=== PATIENT | female | born 1960 | race Caucasian/White ===

== ENCOUNTER 2020-10-29 07:33 | Emergency (ER) | payer OTHER ==
--- NOTE | 2020-10-29 08:33 | EDM.PDOC ---
ED HPI GENERAL MEDICAL PROBLEM - General Chief Complaint: Respiratory Problem Stated Complaint: difficult time breathing Time Seen by Provider: 10/29/20 08:00 Source of Information: Reports: Patient, Family, RN History Limitations: Reports: No Limitations - History of Present Illness INITIAL COMMENTS - FREE TEXT/NARRATIVE: 60-year-old female presents today because she has increasing difficulty breathing. She says she started with a sinus infection with a cold symptoms in August early. That largely resolved but it appears that by Thanksgi she was having significant cough and possibly raising green phlegm. This has continued without the phlegm production because she cannot cough that hard anymore. She is noticed increasing shortness of breath in the last 2 months as well and cannot sleep laying down and apparently has not slept in recent nights because of difficulty breathing. She denies any real pain. She notes that she gets diarrhea since he eats something and she does not eat very often anymore. She did note a 20 pound weight gain represented by edema in her legs. Her urine is dark and her stools are brown She does note that her abdomen seems to be getting bigger as well when I asked her. When I asked about the obvious scleral icterus and yellow skin, they report that they live in a dark house and he is color blind Notably she had lung cancer in 2015 with a wedge resection. In [address] of the chest noted here. She reports in December 2019 that her oncologist had done lab work which was okay at that time but that would be almost a year ago. Her Covid risk is small as she has not been out of the house for over a year. - Related Data Allergies Allergy/AdvReac Type Severity Reaction Status Date / Time Sulfa (Sulfonamide Allergy Rash Verified 10/29/20 07:50 Antibiotics) Home Meds: Home Meds HCTZ/Triamterene [Maxzide 25-37.5 MG] 1 tab PO DAILY 12/14/13 [History] Albuterol [Proventil HFA] 2 puff INH Q4H PRN #1 inhaler 12/17/13 [Rx] Metoprolol Succinate [Toprol XL] 25 mg PO DAILY 08/25/15 [History] Azithromycin 250 mg PO DAILY 10/29/20 [History] Fluticasone Propion/Salmeterol [Advair 250-50 Diskus] 1 puff INH BID 10/29/20 [History] Nystatin [Mycostatin] 5 ml PO QID 10/29/20 [History] predniSONE [Prednisone] 5 mg PO ASDIRECTED 10/29/20 [History] Past Medical History Other HEENT History: wears glasses, 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 GI Surgical History: Reports: Cholecystectomy Other GI Surgeries/Procedures: hemorrhoidectomy Female Surgical History: Reports: Breast Biopsy, Breast Implant, Tubal Ligation Other Musculoskeletal Surgeries/Procedures:: C5-6 fusion, C4-5 fusion, rotator cuff tear without repair Oncologic Surgical History: Reports: Biopsy of Breast Social & Family History - Tobacco Use Tobacco Use Status *Q: Former Tobacco User Used Tobacco, but Quit: Yes Month/Year Tobacco Last Used: 10/2020 - Caffeine Use Caffeine Use: Reports: Coffee - Recreational Drug Use Recreational Drug Use: No ED ROS GENERAL - Review of Systems Review Of Systems: See Below Reason Not Obtained: 10 or more systems are reviewed and reflected in the HPI above. Constitutional: Reports: Malaise, Weakness, Fatigue, Decreased Appetite, Weight Gain, Other ED EXAM, GENERAL - Physical Exam Exam: See Below Free Text/Narrative:: Alert cooperative female sitting upright in the rney icteric in nature able to converse but has some audible crackles Vital signs are noted old records reviewed HEENT shows sclera are icteric pupils equal round reactive her extraocular motions are okay supple skull is nontender there is no facial droop tongue is midline Neck is supple with suggestion of some nodes Just got some whistles and rattles throughout with dullness in the right lower lung field particularly Abdomen is distended and I can feel what appears to be liver or mass Suha hand breath below the costal margin right and left. I do not feel any fluid waves. Does not appear to be particularly tender. I do not notice any spider angiomata Extremities have 2+ pitting edema of the lower extremities Neurologic physiologic tone and coordination and moves extremities without focal deficit Skin is icteric but I do not see any spider angiomata or superficial veins. Exam Limited By: No Limitations General Appearance: Alert (Is a nontoxic with an) Course - Vital Signs Text/Narrative:: 60-year-old female with a history of lung cancer resection in [address] in 2019. She has now been home for about a year and not out of the house and in recent weeks if not months has had increasing difficulty breathing diminished appetite and not eating and recent weight gain with some water retention probably. Her tells me separate from the that she has refused to come in even though she sleeps when she does sleep sitting up and cannot lay down. She has barely eaten anything in a month or more perhaps. Portable chest initially does show fluid or pleural effusion on the right thyroid otherwise lungs look fairly clear chemistries were okay to the degree I could do a CT of abdomen and chest and the radiologist reports that she has hepatomegaly with innumerable metastatic problems throughout the liver. She has notable mediastinal lymphadenopathy likely metastatic. She has left axillary lymphadenopathy and a small volume right pleural effusion and small volume pericardial effusion. Apparently has possible adrenal mets as well and sclerotic osseous metastatic problems in the pelvis predominantly Per cardiogram shows a sinus tachycardia Serum chloride is notably down. She has significant increase in her bilirubin BUN I discussed this with the patient and with the and with the hospitalist here. However if she wishes to have therapeutic intervention other than palliative care she will need to go presumably to [facility] His white count 25,000 and D-dimer is 6900, INR 1.23, sodium 115 with a chloride of 81 and a bilirubin of 10 11:[address] Alxeandra emergency section at [facility] accepts the patient in transfer Last Recorded V/S: Last Vital Signs Temp 35.8 C L 10/29/20 07:49 Pulse 119 H 10/29/20 12:09 Resp 20 10/29/20 12:09 BP 132/78 10/29/20 12:09 Pulse Ox 95 10/29/20 12:09 - Orders/Labs/Meds Orders: Active Orders 24 hr Category Date Time Status Chest 1V Frontal [CR] Stat Exams 10/29/20 08:26 Taken CULTURE BLOOD [BC] Urgent Lab 10/29/20 08:50 Received CULTURE BLOOD [BC] Urgent Lab 10/29/20 08:55 Received Blood Culture x2 Reflex Set [OM.PC] Urgent Oth 10/29/20 08:47 Ordered EKG 12 Lead [EK] Stat Ther 10/29/20 08:25 Ordered Labs: Laboratory Tests 10/29/20 10/29/20 10/29/20 Range/Units 08:25 08:25 08:25 WBC 24.6 H (4.5-11.0) K/uL RBC 4.51 (3.30-5.50) M/uL Hgb 13.5 (12.0-15.0) g/dL Hct 36.6 (36.0-48.0) % MCV 81 (80-98) fL MCH 30 (27-31) pg MCHC 37 H (32-36) % Plt Count 238 (150-400) K/uL PT 13.2 H (9.5-12.0) sec INR 1.22 H (0.80-1.20) D-Dimer, Quantitative (0.0-500.0) ng/mL ABG Hemoglobin (12.0-16.0) g/dL ABG Oxyhemoglobin % ABG Carboxyhemoglobin (0.0-1.6) % ABG Methemoglobin % VBG pH (7.350-7.450) VBG pCO2 mm/Hg VBG pO2 mm/Hg VBG HCO3 mmol/L VBG Total CO2 mmol/L VBG O2 Saturation VBG O2 Content %vol VBG Base Excess mm/L O2 Delivery Device Sodium (140-148) mmol/L Potassium (3.6-5.2) mmol/L Chloride (100-108) mmol/L Carbon Dioxide (21-32) mmol/L Anion Gap (5.0-14.0) mmol/L BUN (7-18) mg/dL Creatinine (0.6-1.0) mg/dL Est Cr Clr Drug Dosing mL/min Estimated GFR (MDRD) (>60) Glucose (74-106) mg/dL Calcium (8.5-10.1) mg/dL Total Bilirubin (0.2-1.0) mg/dL AST (15-37) U/L ALT (12-78) U/L Alkaline Phosphatase (46-116) U/L Troponin I (0.000-0.056) ng/mL C-Reactive Protein (0.0-0.3) mg/dL NT-Pro-B Natriuret Pep (5-125) pg/mL Total Protein (6.4-8.2) g/dL Albumin (3.4-5.0) g/dL Globulin (2.3-3.5) g/dL Albumin/Globulin Ratio (1.2-2.2) Urine Color Yellow (YELLOW) Urine Appearance Clear (CLEAR) Urine pH 7.0 (5.0-8.0) Ur Specific [place] 1.010 (1.008-1.030) Urine Protein Negative (NEGATIVE) mg/dL Urine Glucose (UA) Negative (NEGATIVE) mg/dL Urine Ketones Negative (NEGATIVE) mg/dL Urine Occult Blood Negative (NEGATIVE) Urine Nitrite Negative (NEGATIVE) Urine Bilirubin Small H (NEGATIVE) Urine Urobilinogen 0.2 (0.2-1.0) EU/dL Ur Leukocyte Esterase Negative (NEGATIVE) Urine RBC 0-5 (0-5) Urine WBC 0-5 (0-5) Ur Epithelial Cells Few Amorphous Sediment Not seen Urine Bacteria Not seen Urine Mucus Not seen SARS CoV-2 RNA Rapid JULIA 10/29/20 10/29/20 10/29/20 Range/Units 08:25 08:25 08:25 WBC (4.5-11.0) K/uL RBC (3.30-5.50) M/uL Hgb (12.0-15.0) g/dL Hct (36.0-48.0) % MCV (80-98) fL MCH (27-31) pg MCHC (32-36) % Plt Count (150-400) K/uL PT (9.5-12.0) sec INR (0.80-1.20) D-Dimer, Quantitative 6973.47 H (0.0-500.0) ng/mL ABG Hemoglobin 13.7 (12.0-16.0) g/dL ABG Oxyhemoglobin 93.3 % ABG Carboxyhemoglobin 2.6 H (0.0-1.6) % ABG Methemoglobin 0.7 % VBG pH 7.527 H (7.350-7.450) VBG pCO2 27.0 mm/Hg VBG pO2 81.6 mm/Hg VBG HCO3 22.3 mmol/L VBG Total CO2 19.2 mmol/L VBG O2 Saturation 96.5 VBG O2 Content 18.1 %vol VBG Base Excess 1.0 mm/L O2 Delivery Device Room air Sodium 115 L* (140-148) mmol/L Potassium 4.2 (3.6-5.2) mmol/L Chloride 81 L (100-108) mmol/L Carbon Dioxide 23 (21-32) mmol/L Anion Gap 15.2 H (5.0-14.0) mmol/L BUN 15 D (7-18) mg/dL Creatinine 0.6 (0.6-1.0) mg/dL Est Cr Clr Drug Dosing 86.10 mL/min Estimated GFR (MDRD) > 60 (>60) Glucose 97 (74-106) mg/dL Calcium 8.5 (8.5-10.1) mg/dL Total Bilirubin 10.4 H D (0.2-1.0) mg/dL AST 303 H D (15-37) U/L ALT 206 H (12-78) U/L Alkaline Phosphatase 760 H D (46-116) U/L Troponin I < 0.017 (0.000-0.056) ng/mL C-Reactive Protein 6.12 H (0.0-0.3) mg/dL NT-Pro-B Natriuret Pep 466 H (5-125) pg/mL Total Protein 5.8 L (6.4-8.2) g/dL Albumin 2.2 L (3.4-5.0) g/dL Globulin 3.6 H (2.3-3.5) g/dL Albumin/Globulin Ratio 0.6 L (1.2-2.2) Urine Color (YELLOW) Urine Appearance (CLEAR) Urine pH (5.0-8.0) Ur Specific [place] (1.008-1.030) Urine Protein (NEGATIVE) mg/dL Urine Glucose (UA) (NEGATIVE) mg/dL Urine Ketones (NEGATIVE) mg/dL Urine Occult Blood (NEGATIVE) Urine Nitrite (NEGATIVE) Urine Bilirubin (NEGATIVE) Urine Urobilinogen (0.2-1.0) EU/dL Ur Leukocyte Esterase (NEGATIVE) Urine RBC (0-5) Urine WBC (0-5) Ur Epithelial Cells Amorphous Sediment Urine Bacteria Urine Mucus SARS CoV-2 RNA Rapid JULIA 10/29/20 Range/Units 11:48 WBC (4.5-11.0) K/uL RBC (3.30-5.50) M/uL Hgb (12.0-15.0) g/dL Hct (36.0-48.0) % MCV (80-98) fL MCH (27-31) pg MCHC (32-36) % Plt Count (150-400) K/uL PT (9.5-12.0) sec INR (0.80-1.20) D-Dimer, Quantitative (0.0-500.0) ng/mL ABG Hemoglobin (12.0-16.0) g/dL ABG Oxyhemoglobin % ABG Carboxyhemoglobin (0.0-1.6) % ABG Methemoglobin % VBG pH (7.350-7.450) VBG pCO2 mm/Hg VBG pO2 mm/Hg VBG HCO3 mmol/L VBG Total CO2 mmol/L VBG O2 Saturation VBG O2 Content %vol VBG Base Excess mm/L O2 Delivery Device Sodium (140-148) mmol/L Potassium (3.6-5.2) mmol/L Chloride (100-108) mmol/L Carbon Dioxide (21-32) mmol/L Anion Gap (5.0-14.0) mmol/L BUN (7-18) mg/dL Creatinine (0.6-1.0) mg/dL Est Cr Clr Drug Dosing mL/min Estimated GFR (MDRD) (>60) Glucose (74-106) mg/dL Calcium (8.5-10.1) mg/dL Total Bilirubin (0.2-1.0) mg/dL AST (15-37) U/L ALT (12-78) U/L Alkaline Phosphatase (46-116) U/L Troponin I (0.000-0.056) ng/mL C-Reactive Protein (0.0-0.3) mg/dL NT-Pro-B Natriuret Pep (5-125) pg/mL Total Protein (6.4-8.2) g/dL Albumin (3.4-5.0) g/dL Globulin (2.3-3.5) g/dL Albumin/Globulin Ratio (1.2-2.2) Urine Color (YELLOW) Urine Appearance (CLEAR) Urine pH (5.0-8.0) Ur Specific [place] (1.008-1.030) Urine Protein (NEGATIVE) mg/dL Urine Glucose (UA) (NEGATIVE) mg/dL Urine Ketones (NEGATIVE) mg/dL Urine Occult Blood (NEGATIVE) Urine Nitrite (NEGATIVE) Urine Bilirubin (NEGATIVE) Urine Urobilinogen (0.2-1.0) EU/dL Ur Leukocyte Esterase (NEGATIVE) Urine RBC (0-5) Urine WBC (0-5) Ur Epithelial Cells Amorphous Sediment Urine Bacteria Urine Mucus SARS CoV-2 RNA Rapid JULIA Negative Meds: Medications Discontinued Medications Generic Name Dose Route Start Last Admin Trade Name Freq PRN Reason Stop Dose Admin Sodium Chloride 1,000 mls @ 1,000 mls/hr 10/29/20 09:00 10/29/20 09:24 Normal Saline IV 1,000 mls/hr ASDIRECTED CAROLYN Administration Sodium Chloride 75 mls @ 3 mls/sec 10/29/20 09:00 10/29/20 09:15 Normal Saline IV 3 mls/sec ASDIRECTED CAROLYN Administration Sodium Chloride 1,000 mls @ 100 mls/hr 10/29/20 12:00 10/29/20 11:51 Normal Saline IV 100 mls/hr ASDIRECTED CAROLYN Administration Iopamidol 89 ml 10/29/20 08:59 10/29/20 09:15 Isovue-300 (61%) IV 10/29/20 09:00 89 ml . DIRECTED ONE Administration Departure - Departure Time of Disposition: 11:55 Disposition: DC/Tfer to Acute Hospital 02 Condition: Poor, Serious (The she could go by private car there is a risk attached to it with chemistries like that chloride at low she is having seizures if she had a seizure) Clinical Impression: Respiratory distress, Pleural effusion, Liver cancer, Metastatic cancer, Hyponatremia, Hypochloremia - Discharge Information Referrals: Ally Mckenzie PA [Primary Care Provider] - Forms: ED Department Discharge Additional Instructions: Transfer by ambulance to [facility] Sepsis Event Note (ED) - Evaluation Sepsis Screening Result: Possible Sepsis Risk - Focused Exam Vital Signs: Vital Signs Temp Pulse Resp BP Pulse Ox 10/29/20 12:09 119 H 20 132/78 95 10/29/20 11:05 118 H 131/78 92 L 10/29/20 10:35 117 H 138/85 92 L 10/29/20 10:05 116 H 135/79 92 L 10/29/20 08:47 120 H 20 134/77 96 10/29/20 08:05 116 H 130/77 92 L 10/29/20 07:49 35.8 C L 116 H 22 H 150/91 H 95 10/29/20 07:43 35.8 C L 116 H 22 H 150/91 H 95 - My Orders Last 24 Hours: My Active Orders 10/29/20 08:25 EKG 12 Lead [EK] Stat 10/29/20 08:26 Chest 1V Frontal [CR] Stat 10/29/20 08:47 Blood Culture x2 Reflex Set [OM.PC] Urgent 10/29/20 08:50 CULTURE BLOOD [BC] Urgent 10/29/20 08:55 CULTURE BLOOD [BC] Urgent - Assessment/Plan Last 24 Hours: My Active Orders 10/29/20 08:25 EKG 12 Lead [EK] Stat 10/29/20 08:26 Chest 1V Frontal [CR] Stat 10/29/20 08:47 Blood Culture x2 Reflex Set [OM.PC] Urgent 10/29/20 08:50 CULTURE BLOOD [BC] Urgent 10/29/20 08:55 CULTURE BLOOD [BC] Urgent
[2020-10-29] MEDS ORDERED: Iopamidol 612 MG/ML 100 ML Bottle IV ONE (08:59)
[2020-10-29] MEDS ORDERED: Sodium Chloride 0.9% 75 ML IV SCH (09:00)
[2020-10-29] MEDS ORDERED: Sodium Chloride 0.9% 1,000 ML IV SCH ×2 (09:00→12:00)
--- NOTE | 2020-10-29 10:21 | CRLCT ---
INDICATION: Jaundice, hepatosplenomegaly. History of lung cancer. TECHNIQUE: CT chest, abdomen, and pelvis with intravenous contrast utilizing 88 mL of Isovue-300. Coronal and sagittal reformats. COMPARISON: Chest CT 05/26/2019. FINDINGS: Chest: Redemonstrated postsurgical changes of right middle lobectomy. The right upper lobe bronchus is narrowed but patent. Right lower lobar bronchial occlusion with complete lobar atelectasis. Left-sided airways are patent. Mild-moderate emphysema. Right apical scarring. Newly apparent left upper lobe solid 3 mm nodule (series 2, image 18). New left upper lobe 8 mm solid nodule (series 2, image 54). Small-moderate volume right pleural effusion. - Bulky mediastinal and right hilar lymphadenopathy, including reference 2.3 cm subcarinal node (and 2.1 cm right hilar node (series 2, image 51). Asymmetric mildly enlarged left axillary lymph nodes including reference 1.1 cm node (series 2, image 33). - Heavy coronary artery calcifications. Small volume pericardial effusion. Thoracic aorta is patent and normal caliber with mild-moderate atherosclerotic calcification. Bilateral saline breast implants. - Abdomen and pelvis: Liver is markedly enlarged with innumerable hypoattenuating lesions of varying sizes, including reference for 3.7 cm lesion in the lateral left hepatic lobe (series 2, image 136) and 3.8 cm lesion in the peripheral right hepatic lobe (series 2, image 92). The hepatic veins appear diffusely narrowed. Portal veins are patent. Surgically absent gallbladder. No biliary dilatation. - The pancreas, spleen, and left adrenal appear normal. Newly apparent 1.1 cm right adrenal nodule (series 2, image 108). - Symmetric renal enhancement. No hydronephrosis bilaterally. Unremarkable bladder. Uterus demonstrates prominent left parametrial collaterals as well as contrast opacification of a dilated left gonadal vein, as may be seen with pelvic conducted congestion. - Mild sigmoid diverticulosis. Bowel appears normal in caliber and enhancement. Trace pelvic ascites. No free air or lymphadenopathy. - Normal caliber abdominal aorta with severe atherosclerotic calcification. Scattered sclerotic lesions, most prominently involving the pelvis. IMPRESSION: 1. Hepatomegaly with innumerable metastases throughout the liver. 2. Bulky mediastinal and right hilar lymphadenopathy, likely metastatic, with associated right lower lobar bronchial occlusion and atelectasis. 3. Asymmetric left axillary lymphadenopathy. 4. Small-moderate volume right pleural effusion. Small volume pericardial effusion. 5. Newly apparent right adrenal 1.1 cm nodule, possibly metastatic. 6. Sclerotic osseous metastases predominating in the pelvis. 7. Trace pelvic ascites. Case discussed with Dr. Onur Garcia on 10/29/2020 at 10:15 a.m. Dictated by Shahzad Li MD @ 10/29/2020 10:19:38 AM Please note that all CT scans at this facility use dose modulation, iterative reconstruction, and/or weight-based dosing when appropriate to reduce radiation dose to as low as reasonably achievable. Dictated by: Shahzad Li MD @ 10/29/2020 10:20:01 (Electronically Signed)
[2020-10-29 12:19] VITALS: BP 132/78; PULSE 119
--- NOTE | 2020-10-30 11:48 | CR ---
CHEST: SOB CLINICAL HISTORY:Shortness of breath COMPARISON:CT May 2019 FINDINGS: Patient has a moderate right-sided pleural effusion. Left lung is mildly hyperaerated but clear. Heart and pulmonary vascular appear normal. Impression: Moderate right pleural effusion of undetermined chronology Underlying lesion must be excluded
== END 2020-10-29 13:21 ==
LOC: JP.ED 07:33
DX: J90 Pleural effusion, not elsewhere classified (principal); R06.03 Acute respiratory distress; C22.9 Malignant neoplasm of liver, not specified as primary or secondary; E87.1 Hypo-osmolality and hyponatremia; E87.8 Other disorders of electrolyte and fluid balance, not elsewhere classified; J44.9 Chronic obstructive pulmonary disease, unspecified; Z87.891 Personal history of nicotine dependence; Z20.822 Contact with and (suspected) exposure to COVID-19; Z88.2 Allergy status to sulfonamides; Z79.899 Other long term (current) drug therapy
CPT/HCPCS: 36415; 71045; 71260; 74177; 80053; 81001; 82803; 83880; 84484; 85027; 85379; 85610; 86140; 87040; 87635; 93005; 99285; J7030; Q9967; 93010; U0002